=== PATIENT | female | born 2000 | race Caucasian/White ===

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

== ENCOUNTER 2019-02-17 01:35 | Emergency (ER) | payer OTHER ==
[~2019-02-17] VITALS: Ht 157.5 cm; Wt 53.5 kg
[2019-02-17 01:48] VITALS: BP 136/69
--- NOTE | 2019-02-17 01:48 | NUR ---
PT TAKEN TO BED 8
--- NOTE | 2019-02-17 02:05 | NUR ---
Dr. Deleon examining patient.
[2019-02-17 02:10] VITALS: BP 136/69
--- NOTE | 2019-02-17 02:10 | NUR ---
18 Y/O F PRESENTED TO ED WITH C/O LOWER ABDOMINAL PAIN X30 MINS. PT IS 14 WEEKS . 3/10 PAIN, CRAMPING. DENIES VAGINAL BLEEDING AND BACK PAIN . ERMD NOTIFIED. WILL CONTINUE TO MONITOR.
== END 2019-02-17 02:51 | disposition home or self-care (01) ==
LOC: MED 01:35
DX: O23.42 Unspecified infection of urinary tract in pregnancy, second trimester (principal); J45.909 Unspecified asthma, uncomplicated; Z3A.15 15 weeks gestation of pregnancy; Z88.1 Allergy status to other antibiotic agents
CPT/HCPCS: 81002; 81025; 99283

== ENCOUNTER 2019-06-12 09:48 | Inpatient (IN) | payer MEDICAID, OTHER ==
[~2019-06-12] VITALS: Ht 157.5 cm; Wt 59.1 kg
[2019-06-12 09:57] VITALS: BP 133/64
--- NOTE | 2019-06-12 10:10 | NUR ---
TO LABOR AND DELIVERY VIA W/C. REPORT GIVEN VIA PHONE TO [facility].
[2019-06-12 11:28] LABS: BASOPHILS % (AUTO) 0.3 % (0.0-2.0); EOSINOPHILS % (AUTO) 0.2 % (0.0-4.0); HEMATOCRIT 37.1 % (36-48); HEMOGLOBIN 12.6 g/dL (12.0-16.0); LYMPHOCYTES # (AUTO) 1.9 K/uL (2.5-16.5); LYMPHOCYTES % (AUTO) 13.4 % (20.5-51.1); MEAN CORPUSCULAR HEMOGLOBIN 28 pg (27-31); MEAN CORPUSCULAR HGB CONC 34 g/dL (33-37); MEAN CORPUSCULAR VOLUME 83.3 fL (80-94); MONOCYTES # (AUTO) 0.8 K/uL (0.8-1.0); MONOCYTES % (AUTO) 5.4 % (1.7-9.3); NEUTROPHILS # (AUTO) 11.4 K/uL (1.8-7.7); NEUTROPHILS % (AUTO) 80.7 % (42.2-75.2); PLATELET COUNT (AUTO) 234 K/uL (140-450); RED BLOOD CELL COUNT(AUTO) 4.46 MIL/uL (4.20-5.40); RED CELL DISTRIBUTION WIDTH 13.1 % (11.6-13.7); WHITE BLOOD COUNT (AUTO) 14.2 K/uL (4.5-11.0)
[2019-06-12 11:30] VITALS: BP 138/80
[2019-06-12] MEDS ORDERED: INFLUENZA VACCINE QUAD 0.5 ML SYR IMVAC PRN (11:30)
[2019-06-12 12:22] LABS: ANION GAP 15.1 (8-16); CARBON DIOXIDE 27.2 mmol/L (21-32); CREATININE 0.5 mg/dL (0.6-1.3); POTASSIUM 4.3 mmol/L (3.5-5.1)
[2019-06-12 12:23] LABS: ALBUMIN 2.9 g/dL (3.4-5.0); FREE T4 (FREE THYROXINE) 1.16 ng/dL (0.76-1.46); THYROID STIMULATING HORMONE 1.89 uIU/mL (0.34-3.74); TOTAL BILIRUBIN 0.6 mg/dL (0.0-1.0)
[2019-06-12 12:58] LABS: PROTHROMBIN TIME 8.9 secs (10.8-13.4)
[2019-06-12] MEDS ORDERED: MISOPROSTOL 100 MCG TAB ONE ×2 (13:09→17:00)
[2019-06-12 13:41] LABS: APPEARANCE,URINE HAZY (CLEAR); BILIRUBIN,URINE NEGATIVE (NEGATIVE); BLOOD, URINE NEGATIVE (NEGATIVE); COLOR,URINE YELLOW (YELLOW); LEUKOCYTE ESTERASE ,URINE TRACE (NEGATIVE); NITRITE, URINE NEGATIVE (NEGATIVE); UGLUCOSE NEGATIVE (NEGATIVE)
[2019-06-12 13:55] LABS: RBC,URINE 0-5 /HPF (0-5); WBC,URINE 0-5 /HPF (0-5)
[2019-06-12] MEDS: LACTATED RINGERS 1,000 ML IV SCH (20:16)
[2019-06-12] MEDS ORDERED: MISOPROSTOL 200 MCG TAB ONE (21:01)
[2019-06-12] MEDS: MISOPROSTOL 100 MCG TAB VG SCH (21:05)
[2019-06-12] MEDS ORDERED: PROMETHAZINE 25 MG/ML VIAL ONE (23:07)
[2019-06-12] MEDS ORDERED: NALBUPHINE 10 MG/ML AMP ONE (23:07)
[2019-06-12] MEDS: NALBUPHINE 10 MG/ML AMP IVP PRN (23:09)
[2019-06-12] MEDS: PROMETHAZINE 25 MG/ML VIAL IVP PRN (23:09)
[2019-06-13] MEDS ORDERED: NALBUPHINE 10 MG/ML AMP ONE ×2 (00:52→01:09)
[2019-06-13] MEDS: NALBUPHINE 10 MG/ML AMP IVP PRN ×2 (00:53→01:12)
[2019-06-13] MEDS ORDERED: PROMETHAZINE 25 MG/ML VIAL ONE (01:09)
[2019-06-13] MEDS: MISOPROSTOL 100 MCG TAB VG SCH (01:11)
[2019-06-13] MEDS: PROMETHAZINE 25 MG/ML VIAL IVP PRN (01:12)
[2019-06-13] MEDS: LACTATED RINGERS 1,000 ML IV SCH (03:32)
[2019-06-13] MEDS ORDERED: OXYTOCIN 20 UNITS/LR PREMIX 1,000 ML IV ONE (04:16)
[2019-06-13] MEDS ORDERED: OXYTOCIN 20 UNITS in LACTATED RINGERS 1,000 ML IV SCH (04:30)
[2019-06-13] MEDS ORDERED: CLINDAMYCIN 900 MG in DEXTROSE 5% 100 ML IV ONE (05:50)
[2019-06-13] MEDS ORDERED: GENTAMICIN PER PHARMACY MC PRN (05:50)
[2019-06-13] MEDS ORDERED: CLINDAMYCIN 900 MG/6 ML VIAL IV ONE ×2 (06:00→22:38)
[2019-06-13] MEDS ORDERED: oxyCODONE/APAP 5/325 MG 1 TAB TAB PO PRN (06:45)
[2019-06-13] MEDS ORDERED: MEASLES, MUMPS, AND RUBELLA 1 VIAL SQVAC PRN (06:45)
[2019-06-13] MEDS ORDERED: OXYTOCIN 10 UNITS/ML VIAL IM PRN (06:45)
[2019-06-13] MEDS ORDERED: METHYLERGONOVINE 0.2 MG/ML AMP IM PRN (06:45)
[2019-06-13] MEDS ORDERED: IBUPROFEN 800 MG TAB PO PRN (06:45)
[2019-06-13] MEDS ORDERED: TEMAZEPAM 15 MG CAP PO PRN (06:45)
[2019-06-13] MEDS ORDERED: HYDROcodone/APAP 5/325 MG 1 TAB TAB PO PRN (06:45)
--- NOTE | 2019-06-13 07:57 | NUR ---
PATIENT HAS BEEN SCREENED AND CATEGORIZED LOW NUTRITION RISK. PATIENT WILL BE SEEN WITHIN 7 DAYS OF ADMISSION. 06/18/[address]
[2019-06-13] MEDS: CLINDAMYCIN 900 MG in DEXTROSE 5% 100 ML IV SCH ×2 (15:07→21:00)
[2019-06-13] MEDS: GENTAMICIN 80 MG in DEXTROSE 5% 100 ML IV SCH (18:19)
[2019-06-13] MEDS ORDERED: DOCUSATE SOD/SENNA 50/8.6 MG 1 TAB PO SCH (21:00)
[2019-06-14 07:34] LABS: HEMATOCRIT 31.2 % (36-48); HEMOGLOBIN 10.3 g/dL (12.0-16.0); MEAN CORPUSCULAR HEMOGLOBIN 28 pg (27-31); MEAN CORPUSCULAR HGB CONC 33 g/dL (33-37); MEAN CORPUSCULAR VOLUME 84.4 fL (80-94); PLATELET COUNT (AUTO) 185 K/uL (140-450); RED CELL DISTRIBUTION WIDTH 13.4 % (11.6-13.7); WHITE BLOOD COUNT (AUTO) 20.3 K/uL (4.5-11.0)
[2019-06-14 08:00] LABS: BASOPHILS % (MANUAL) 0 % (0-2); EOSINOPHILS % (MANUAL) 1 % (0-4); LYMPHOCYTES % (MANUAL) 22 % (20-46); METAMYELOCYTES % 1 % (0-0); MONOCYTES % (MANUAL) 3 % (5-12)
[2019-06-14] MEDS: GENTAMICIN 80 MG in DEXTROSE 5% 100 ML IV SCH (10:33)
[2019-06-14] MEDS: CLINDAMYCIN 900 MG in DEXTROSE 5% 100 ML IV SCH (14:28)
--- NOTE | 2019-06-14 15:52 | NUR ---
Political Organizer Note: Late entry for 06/13/19: I me with patient and patient's parents Robinson and Susan Soo at bedside. Patient speaks Surinamese and [place]. Parents speak [place]. Patient lives at home with her parents. She stated her parents are supportive. She reported she has had good communication with MD and nursing staff. She does not have any questions nor concerns at this time. She stated she does not need any community resources nor public health social worker assistance. Robinson has contacted [facility] to make arrangements. Patient and parents were easy to engage. They thanked me for my assistance. I provided them with my contact information.
[2019-06-14] MEDS: LACTATED RINGERS 1,000 ML IV SCH (16:52)
[2019-06-14] MEDS ORDERED: DOCUSATE SOD/SENNA 50/8.6 MG 1 TAB PO SCH (21:00)
== END 2019-06-14 22:15 | disposition home or self-care (01) | DRG 560 ==
LOC: MED 09:48 → MFCC 10:25
PROVIDERS: ADMIT Obstetrics & Gynecology; ATTEND Obstetrics & Gynecology
PROC: 10E0XZZ Delivery of Products of Conception, External Approach (ICD-10-PCS; principal; 2019-06-13)
PROC: 3E033VJ Introduction of Other Hormone into Peripheral Vein, Percutaneous Approach (ICD-10-PCS; 2019-06-13)
PROC: 3E0P7VZ Introduction of Hormone into Female Reproductive, Via Natural or Artificial Opening (ICD-10-PCS; 2019-06-13)
DX: O36.4XX0 Maternal care for intrauterine death, not applicable or unspecified (principal); D62 Acute posthemorrhagic anemia; Z37.1 Single stillbirth; O69.1XX0 Labor and delivery complicated by cord around neck, with compression, not applicable or unspecified; O77.0 Labor and delivery complicated by meconium in amniotic fluid; O71.89 Other specified obstetric trauma; Z3A.32 32 weeks gestation of pregnancy; Z88.1 Allergy status to other antibiotic agents
CPT/HCPCS: 36415; 59200; 59409; 76805; 80053; 81001; 83036; 84439; 84443; 85025; 85384; 85610; 85730; 86886; 86900; 86901; 88307; 90715; 99281; J1580; J2300; J2550; J2590; J3490; J7060; J7120; Q0092

== ENCOUNTER 2019-10-06 02:33 | Emergency (ER) | payer MEDICAID, OTHER ==
[~2019-10-06] VITALS: Ht 157.5 cm; Wt 52.6 kg
[2019-10-06 02:36] VITALS: BP 117/75
--- NOTE | 2019-10-06 02:45 | NUR ---
PT ASSESSMENT COMPLETE. PT SEATED UPRIGHT IN BED. FAMILY AT BEDSIDE. WILL CONTINUE TO MONITOR.
--- NOTE | 2019-10-06 02:55 | NUR ---
PHLEB AT BEDSIDE TO COLLECT BLOOD SPECIMEN.
[2019-10-06 03:04] LABS: BASOPHILS # (AUTO) 0.2 K/uL (0.00-0.22); EOSINOPHILS % (AUTO) 0.3 % (0.0-4.0); HEMATOCRIT 35.7 % (36-48); HEMOGLOBIN 11.9 g/dL (12.0-16.0); LYMPHOCYTES # (AUTO) 1.9 K/uL (2.5-16.5); LYMPHOCYTES % (AUTO) 11.6 % (20.5-51.1); MEAN CORPUSCULAR HEMOGLOBIN 27 pg (27-31); MEAN CORPUSCULAR HGB CONC 34 g/dL (33-37); MEAN CORPUSCULAR VOLUME 79.9 fL (80-94); MONOCYTES # (AUTO) 0.8 K/uL (0.8-1.0); MONOCYTES % (AUTO) 4.9 % (1.7-9.3); NEUTROPHILS # (AUTO) 13.3 K/uL (1.8-7.7); NEUTROPHILS % (AUTO) 82.2 % (42.2-75.2); PLATELET COUNT (AUTO) 243 K/uL (140-450); RED BLOOD CELL COUNT(AUTO) 4.47 MIL/uL (4.20-5.40); RED CELL DISTRIBUTION WIDTH 13.6 % (11.6-13.7); WHITE BLOOD COUNT (AUTO) 16.2 K/uL (4.5-11.0)
[2019-10-06 03:04] LABS: APPEARANCE,URINE SL CLOUDY (CLEAR); BILIRUBIN,URINE NEGATIVE (NEGATIVE); BLOOD, URINE NEGATIVE (NEGATIVE); COLOR,URINE YELLOW (YELLOW); LEUKOCYTE ESTERASE ,URINE NEGATIVE (NEGATIVE); NITRITE, URINE NEGATIVE (NEGATIVE); UGLUCOSE NEGATIVE (NEGATIVE)
[2019-10-06 03:13] LABS: ANION GAP 12.4 (8-16); CARBON DIOXIDE 26.1 mmol/L (21-32); CREATININE 0.4 mg/dL (0.6-1.3); POTASSIUM 3.5 mmol/L (3.5-5.1)
--- NOTE | 2019-10-06 03:46 | NUR ---
ULTRASOUND AT BEDSIDE.
[2019-10-06 04:44] VITALS: BP 110/71
--- NOTE | 2019-10-06 04:46 | NUR ---
PT LYING SUPINE IN BED. VISIBLE CHEST RISE AND FALL NOTED. SAFETY MEASURES IN PLACE. WILL CONTINUE TO MONITOR.
[2019-10-06] MEDS ORDERED: ACETAMINOPHEN EXTRA STRENGTH 500 MG TAB ONE (05:09)
[2019-10-06] MEDS ORDERED: ACETAMINOPHEN EXTRA STRENGTH 500 MG TAB PO ONE (05:10)
--- NOTE | 2019-10-06 05:20 | NUR ---
Patient discharged with v/s stable. Written and verbal after care instructions given and explained. Patient alert, oriented and verbalized understanding of instructions. Ambulatory with steady gait. All questions addressed prior to discharge. ID band removed. Patient advised to follow up with PMD. Rx of TYLENOL AND DICLEGIS given. Patient educated on indication of medication including possible reaction and side effects. Opportunity to ask questions provided and answered.
== END 2019-10-06 05:20 | disposition home or self-care (01) ==
LOC: MED 02:33
DX: O26.91 Pregnancy related conditions, unspecified, first trimester (principal); R10.9 Unspecified abdominal pain; O21.9 Vomiting of pregnancy, unspecified; J45.909 Unspecified asthma, uncomplicated; Z88.1 Allergy status to other antibiotic agents
CPT/HCPCS: 36415; 76801; 80048; 81003; 84702; 85025; 86900; 86901; 99284; Q0092